=== PATIENT | male | born 1960 | race Caucasian/White ===

== ENCOUNTER 2022-11-18 08:55 | Outpatient (CLI) | payer OTHER, SELFPAY | END 2022-11-18 08:56 | disposition home or self-care (01) | PROVIDERS: PCP Internal Medicine; Visit Provider Surgery | DX: K22.70 Barrett's esophagus without dysplasia (principal); K22.89 Other specified disease of esophagus; K44.9 Diaphragmatic hernia without obstruction or gangrene | CPT/HCPCS: 43239; 88305; J2250; J3010 ==

== ENCOUNTER 2022-11-22 08:30 | Outpatient (CLI) | payer OTHER, SELFPAY ==
[2022-11-22 11:10] LABS: Albumin* 3.8 g/dL (3.3-5.0); Chloride* 111 mmol/L (96-114)
[2022-11-22 11:11] LABS: Potassium* 4.1 mmol/L (3.6-5.1); Sodium* 143 mmol/L (135-149)
[2022-11-22 11:13] LABS: Alkaline Phosphatase* 68 U/L (40-150); Aspartate Amino Transferase* 31 U/L (12-35); Bilirubin Total* 0.4 mg/dL (0.1-1.5); Blood Urea Nitrogen* 20 mg/dL (7-30); Carbon Dioxide* 25 mmol/L (20-32); Cholesterol* 134 mg/dL (90-199); Creatinine* 1.1 mg/dL (0.5-1.5); Estimated Glomerular Filt Rate 75 ml/min; Total Protein* 6.5 g/dL (6.0-8.3); Triglycerides* 118 mg/dL (40-149)
[2022-11-22 11:14] LABS: Alanine Aminotransferase* 26 U/L (4-50); Calcium* 9.1 mg/dL (8.4-10.6); HDL Cholesterol* 48 mg/dL (>=40); LDL Cholesterol Calculated 62 mg/dL (<100)
[2022-11-22 11:28] LABS: Glucose* 96 mg/dL (60-115)
[2022-11-22 11:35] LABS: PSA Screen* 0.41 ng/mL (0.10-4.00)
== END 2022-11-22 08:31 | disposition home or self-care (01) ==
PROVIDERS: PCP Internal Medicine; Visit Provider Internal Medicine
DX: E78.5 Hyperlipidemia, unspecified (principal); Z12.5 Encounter for screening for malignant neoplasm of prostate
CPT/HCPCS: 80053; 80061; 84153

== ENCOUNTER 2023-05-30 14:25 | Outpatient (CLI) | payer OTHER, SELFPAY ==
--- NOTE | 2023-05-30 14:30 | CRLHL7_ITS ---
For Patients: As a result of the Cures Act, medical imaging exams and procedure reports are released immediately into your electronic medical record. You may view this report before your referring provider. If you have questions, please contact your health care provider. Indication: Pain Technique: AP pelvis and two views right hip Comparison: None Findings: Mild spurring and narrowing at the right hip joint. No fracture. Narrowing and spurring also present at the left hip. SI joints maintained. Disc space narrowing and spurring on the right at L4-5. Impression: Degenerative joint disease both hips, left greater than right. Degenerative disc disease on the right at L4-5. Dictated by Armaan Mathews MD @ 05/30/2023 3:45:49 PM (Electronically Signed)
--- NOTE | 2023-05-30 14:45 | CRLHL7_ITS ---
For Patients: As a result of the Century Cures Act, medical imaging exams and procedure reports are released immediately into your electronic medical record. You may view this report before your referring provider. If you have questions, please contact your health care provider. INDICATION: Pain. TECHNIQUE: Three views of the right knee. FINDINGS: No fracture, dislocation, erosion, or effusion. Mild spurring of the patellofemoral compartment. Small calcification within the posteromedial right knee potentially a small loose body in the joint space. An MRI may be helpful for further characterization. IMPRESSION: Possible loose body in the posteromedial right knee joint space. Mild narrowing and slight spurring of the patellofemoral compartment. Dictated by Davon Beavers MD @ 05/30/2023 3:45:54 PM (Electronically Signed)
--- NOTE | 2023-05-30 14:45 | CRLHL7_ITS ---
For Patients: As a result of the Cures Act, medical imaging exams and procedure reports are released immediately into your electronic medical record. You may view this report before your referring provider. If you have questions, please contact your health care provider. Indication: Right shoulder pain. Technique: Right shoulder 3 views. Comparison: None. Findings: Intact visualized ribs. No fracture. Mild spurring at the acromioclavicular joint. Area of decreased density within the right proximal humerus. This is likely due to degeneration. Impression: Mild degenerative joint disease at the right shoulder. Dictated by Armaan Mathews MD @ 05/30/2023 3:44:16 PM (Electronically Signed)
== END 2023-05-30 14:26 | disposition home or self-care (01) ==
LOC: RAD 14:26
PROVIDERS: PCP Internal Medicine; Visit Provider Internal Medicine
DX: M25.511 Pain in right shoulder (principal); M19.011 Primary osteoarthritis, right shoulder; M25.561 Pain in right knee; M25.551 Pain in right hip; M16.0 Bilateral primary osteoarthritis of hip
CPT/HCPCS: 73030; 73502; 73562

== ENCOUNTER 2023-06-09 12:53 | Outpatient (CLI) | payer OTHER, SELFPAY ==
--- NOTE | 2023-06-09 13:42 | W.PM.STED ---
Stress Test Note Date Date Seen: 06/09/23 Date of test: 06/09/23 Providers Primary care provider: Ed Wan Stress test physician: Risa Moffett Stress Test Note Stress test ordered: Stress Echo Indication for test: Shortness of breath Stress test medicine: None Results discussion: Resting EKG: Sinus bradycardia, upper 50s Resting blood pressure: 110/67 Stress test: Patient is exercised on the treadmill following standard Avi protocol. One solitary PVC was seen on the monitor during the stress test. There is no definitive ischemia seen, no arrhythmia. Patient exercised to 12 minutes achieving 12.1 Mets. He had a maximum heart rate of 163 beats per minute which was 122% of a calculated target of 133 and slightly above a maximum calculated heart rate of 156. He had a maximum blood pressure 145/74 at termination of exercise. Giving a rate pressure product of 23,635. Outside of having symptoms with shortness of breath and some right hip pain with underlying hip arthritis, patient had no concerning symptoms expected for this level of exertion. He had no chest pain. Echo images are pending to couple this test for full formal diagnostic. Impression: Subjectively negative, objectively negative EKG portion of this stress test. Follow up suggested: Await echo images to couple this for a full formal diagnostic, expect to hear from primary ordering physician's office when the report is in. Discharged from stress test in stable condition.
[2023-06-09 13:43] VITALS: BP 145/74; PULSE 86; RESP 20
== END 2023-06-09 12:54 | disposition home or self-care (01) ==
LOC: STRESS 12:53
PROVIDERS: PCP Internal Medicine; Visit Provider Internal Medicine
DX: R06.02 Shortness of breath (principal)
CPT/HCPCS: 93016; 93325; 93351

== ENCOUNTER 2023-06-27 09:55 | Outpatient (CLI) | payer OTHER, SELFPAY ==
--- NOTE | 2023-06-27 10:00 | MR_ITS ---
[facility] [address] [facility] [address] Phone:?[phone] Fax:?[phone] Referring Physician Information: Nader Sepulveda M.D. [address] [facility] [address] Phone:?[phone] Fax:?[phone] Patient:Angelica Tavares D.O.B:?1960 Sex:?Male Phone:?[phone] [facility] MRN:?[id number] Exam Date:?06/27/2023 EXAM: MRI of the RIGHT SHOULDER, without contrast CLINICAL HISTORY: Evaluate right shoulder rotator cuff tear or rupture. COMPARISONS: Plain radiographs 05/30/2023. MRI 10/02/2010. TECHNICAL: MRI sequences of the right shoulder: Axials: PD, T2 Coronals: PD, STIR, T2 Sagittals: PD, T2 SEDATION: None CONTRAST: None FINDINGS: Bones: No fracture or suspicious bone marrow signal abnormality. Coracoacromial arch: Acromion: No os acromiale. Type I-II acromion. Acromiohumeral space: The bony distance is unremarkable. Coracohumeral space: The bony distance is unremarkable. Acromioclavicular joint: No acute injury, arthropathy, or inferior hypertrophy. Coracoclavicular ligament: The coracoclavicular ligament is intact. Rotator cuff muscles/tendons: Supraspinatus: Mild interstitial delamination and mild tendinopathy of the supraspinatus tendon insertion, unchanged compared to MRI 10/02/2010. No muscular atrophy. Infraspinatus: Mild interstitial delamination and mild tendinopathy of the infraspinatus tendon insertion, unchanged compared to previous MRI 10/02/2010. No muscular atrophy. Teres minor: The teres minor tendon and muscle are intact. Subscapularis: 1.3 cm in craniocaudad dimension by 2.1 cm in transverse dimension concealed split longitudinal intrasubstance/interstitial tear within the superior portion of the subscapularis tendon insertion superimposed upon mild to moderate subscapularis tendinopathy, new compared to previous MRI 10/02/2010. No muscular atrophy. Labrum and glenohumeral joint: Fraying/ill-defined tearing of the superior and posterosuperior portions of the labrum. Trace glenohumeral joint effusion. No full-thickness chondral defect or subchondral bone marrow edema/cystic change is seen. No convincing evidence of capsular edema or thickening although evaluation is suboptimal because of lack of joint distention. Proximal biceps tendon, long head and short heads: There is fraying and mild tendinopathy of the proximal long head of the biceps tendon, which is medially subluxed onto the lesser tuberosity extending into the split longitudinal intrasubstance/interstitial subscapularis tendon tear. The short head is intact. Bursae: Subacromial/subdeltoid: No convincing subacromial bursal thickening/bursitis. Subcoracoid: No convincing subcoracoid bursal thickening/bursitis. IMPRESSION: 1. 1.3 x 2.1 cm concealed split longitudinal intrasubstance/interstitial tear within the superior portion of the subscapularis tendon insertion superimposed upon mild to moderate subscapularis tendinopathy, new compared to previous MRI 10/02/2010. 2. Fraying and mild tendinopathy of the proximal long head of the biceps tendon, which is medially subluxed onto the lesser tuberosity extending into the adjacent split longitudinal intrasubstance/interstitial subscapularis tendon tear. 3. Mild interstitial delamination and mild tendinopathy of the supraspinatus and infraspinatus tendon insertions, unchanged compared to previous MRI 10/02/2010. 4. No atrophy of the rotator cuff musculature. 5. Fraying/ill-defined tearing of the superior and posterosuperior portions of labrum. 6. Trace glenohumeral joint effusion. RCB Electronically signed on 06/27/2023 4:08:00 PM by Eliezer Garvin M.D.
== END 2023-06-27 09:56 | disposition home or self-care (01) ==
LOC: MRI 09:55
PROVIDERS: PCP Internal Medicine; Visit Provider Orthopaedic Surgery Sports Medicine
DX: M25.511 Pain in right shoulder (principal); M75.101 Unspecified rotator cuff tear or rupture of right shoulder, not specified as traumatic; M25.411 Effusion, right shoulder
CPT/HCPCS: 73221

== ENCOUNTER 2025-03-14 08:25 | Outpatient (CLI) | payer MEDICARE, SELFPAY | END 2025-03-14 08:26 | disposition home or self-care (01) | LOC: NFLDREF 03-26 06:47 | PROVIDERS: PCP Internal Medicine; Referring Provider Internal Medicine; Visit Provider Internal Medicine | DX: E78.5 Hyperlipidemia, unspecified (principal); N40.0 Benign prostatic hyperplasia without lower urinary tract symptoms; Z12.5 Encounter for screening for malignant neoplasm of prostate | CPT/HCPCS: 80053; 80061; G0103 ==

== ENCOUNTER 2025-06-20 14:19 | Outpatient (CLI) | payer MEDICARE, SELFPAY ==
--- NOTE | 2025-06-20 14:30 | MR_ITS ---
EXAM: MRI of the LEFT HIP, without contrast CLINICAL HISTORY: Ongoing left hip pain. COMPARISONS: Plain radiographs 05/29/2025 and 09/06/2019. TECHNICAL: MR sequences of the left hip: Axials: PD FS Axial oblique: PD Coronals: PD, T2 Coronal pelvis: T1 and STIR Sagittals: PD and T2 CONTRAST: None SEDATION: None FINDINGS: Pelvis osseous structures: Sacrum: No fracture or destructive osseous lesion is seen of the imaged portions of the sacrum. Sacroiliac joints: No convincing evidence of sacroiliitis of the imaged portions of the sacroiliac joints. Pubic rami: Unremarkable. Symphysis pubis: There is no evidence of acute osteitis pubis. Labrum: Tearing of the entire labrum. Hip joint: Small left hip joint effusion. Marked left hip osteoarthritic changes include diffuse full-thickness chondral loss throughout the left hip joint, extensive subchondral edema-like signal within the superior portion of the left femoral head, slight subchondral trabecular microfracturing of the superior portion of the femoral head, and subchondral cystic changes within the left acetabulum. Proximal femur: No fracture, avascular necrosis, or destructive osseous lesion. There is left femoral cam morphology. Acetabulum: Ligamentum teres: Unremarkable. Myotendinous structures: Gluteus abductors: The gluteus minimus and medius tendons are unremarkable. Rectus abdominis-adductor longus aponeurosis, adductors, and rectus abdominis: Unremarkable. Hamstrings: Unremarkable. Flexors: The iliopsoas and rectus femoris tendons are intact. Quadratus femoris muscle: Unremarkable. Piriformis muscle: Unremarkable. Gluteal aponeurotic fascia and IT band: Unremarkable. Pelvic soft tissues: Unremarkable. Multilevel degenerative disc disease of the lumbar spine, not optimally evaluated by this dedicated MRI of the left hip. IMPRESSION: 1. Marked left hip osteoarthritis with diffuse full-thickness chondral loss throughout the left hip, associated extensive subchondral edema-like signal within the superior portion of the left femoral head, slight subchondral trabecular microfracturing of the superior portion of the femoral head, and subchondral cystic changes within the acetabulum. Tearing of the entire left hip labrum. 2. Left femoral cam morphology. 3. Small left hip joint effusion. 4. Multilevel degenerative disc disease of the lumbar spine, not optimally evaluated by this dedicated MRI of the left hip. Dedicated MRI of the lumbar spine could be obtained for further evaluation if clinically appropriate. 5. No fracture or tendinous pathology of the left hip. RCB Electronically signed on 06/21/2025 11:33:00 AM by Eliezer Garvin M.D.
== END 2025-06-20 14:20 | disposition home or self-care (01) ==
LOC: MRI 14:20
PROVIDERS: PCP Internal Medicine; Visit Provider Orthopaedic Surgery
DX: M25.552 Pain in left hip (principal); M16.12 Unilateral primary osteoarthritis, left hip; M25.452 Effusion, left hip; M51.369 Other intervertebral disc degeneration, lumbar region without mention of lumbar back pain or lower extremity pain
CPT/HCPCS: 73721